=== PATIENT | male | born 1985 | race Caucasian/White ===

== ENCOUNTER 2017-06-28 11:29 | Observation (INO) | payer OTHER ==
[~2017-06-28] VITALS: Ht 165.1 cm; Wt 68.0 kg
[2017-06-28] MEDS ORDERED: LORazepam 2 MG/ML VIAL ONE (11:52)
[2017-06-28] MEDS ORDERED: MIDAZOLAM HCL 5 MG/ML VIAL (1 ML) ONE (11:55)
[2017-06-28 11:56] VITALS: BP 180/99; PULSE 124; RESP 18; TEMP 99.1; O2SAT 98
[2017-06-28] MEDS ORDERED: LORazepam 2 MG/ML VIAL IM ONE (12:00)
[2017-06-28] MEDS ORDERED: LIDOCAINE HCL 1% 30 ML VIAL INFIL ONE (12:00)
[2017-06-28] MEDS ORDERED: MIDAZOLAM HCL 2 MG/2 ML VIAL IM ONE (12:00)
[2017-06-28] MEDS ORDERED: SODIUM CHLOR 0.9% 1000 ML INJ 1,000 ML IV ONE ×3 (12:00→14:00)
[2017-06-28 12:09] VITALS: BP 180/99; PULSE 116; RESP 18; O2SAT 92
[2017-06-28 12:10] LABS: AUTOMATED NEUTROPHIL # 5.4 TH/MM3 (1.8-7.7); BASOPHIL # 0.1 TH/MM3 (0-0.2); BASOPHIL % 1.1 % (0.0-2.0); EOSINOPHIL % 0.3 % (0.0-4.0); HEMATOCRIT 47.7 % (39.0-51.0); HEMOGLOBIN 16.4 GM/DL (13.0-17.0); LYMPH % 24.4 % (9.0-44.0); LYMPHOCYTE # 1.9 TH/MM3 (1.0-4.8); MEAN CELL VOLUME 91.7 FL (80.0-100.0); MEAN CORPUSCULAR HEMOGLOBIN 31.6 PG (27.0-34.0); MEAN CORPUSCULAR HGB CONC 34.5 % (32.0-36.0); MEAN PLATELET VOLUME 7.9 FL (7.0-11.0); MONO % 7.1 % (0.0-8.0); MONOCYTE # 0.6 TH/MM3 (0-0.9); NEUT % 67.1 % (16.0-70.0); PLATELET COUNT 316 TH/MM3 (150-450); RED CELL DISTRIBUTION WIDTH 12.7 % (11.6-17.2)
--- NOTE | 2017-06-28 12:33 | PD ---
HPI Chief Complaint: Psychiatric Symptoms Time Seen by Provider: 11:50 Travel History International Travel<30 days: No Contact w/Intl Traveler<30days: No Traveled to known affect area: No History of Present Illness HPI Rd Carson that presents to the ED under BA for evaluation of PCP ingestion. Patient at this time is not a good historian at all and is clearly under the influence of illicit drugs. Per report from police who got involved, allegedly patient took an unknown amount of PCP, was acting erratic and hallucinating stating that he was "God" and became very agressive. EVAC contacted and he had to be restrained and given ketamine with good improvement of symptoms. Patient is currently restrained. Per police he hit his head and left knee on the police car x 3 times. No other injuries reported. patient cannot give any history at this time. Patient's real name is Kai Fay and birthday is 1985. Patient was BA by police. PFSH Past Medical History ?: Not Social History Alcohol Use: No Tobacco Use: No Substance Use: Yes Allergies-Medications (Allergen,Severity, Reaction): Coded Allergies: No Allergy Information Available (Unverified , 06/28/17) Reported Meds & Prescriptions Reported Meds & Active Scripts Active Active Prescriptions or Reported Medications Unobtainable Review of Systems ROS Limitations: Intoxication, Altered Mental Status, Combative, Poor Historian Except as stated in HPI: all other systems reviewed are Neg Physical Exam Exam Limitations: Intoxication, Altered Mental Status, Poor Historian, Combative Narrative GENERAL: SKIN: Warm and dry. Has a superficial laceration to anterior left knee. about 4 cm, less than 0.5 cm deep. Well approximated. No FB, tendon, vessel or nerve damage noted. HEAD: Atraumatic. Normocephalic. EYES: Pupils equal and round. No scleral icterus. No injection or drainage. ENT: No nasal bleeding or discharge. Mucous membranes pink and moist. Tongue is midline. No uvula deviation. NECK: Trachea midline. No JVD. CARDIOVASCULAR: Regular rate and rhythm. No murmurs, S3, S4. RESPIRATORY: No accessory muscle use. Clear to auscultation. Breath sounds equal bilaterally. GASTROINTESTINAL: Abdomen soft, non-tender, nondistended. Hepatic and splenic margins not palpable. MUSCULOSKELETAL: Extremities without clubbing, cyanosis, or edema. No obvious deformities. Full range of motion of the upper and lower extremities bilaterally. 2+ pulses bilaterally. NEUROLOGICAL: Awake and alert. No obvious cranial nerve deficits. Motor grossly within normal limits. Five out of 5 muscle strength in the arms and legs. Normal speech. PSYCHIATRIC: Appropriate mood and affect; insight and judgment normal. Data Data Last Documented VS Vital Signs Date Time Temp Pulse Resp B/P (MAP) Pulse Ox O2 Delivery O2 Flow Rate FiO2 06/28/17 12:09 116 18 180/99 (126) 92 Room Air 06/28/17 11:56 99.1 Orders Orders Complete Blood Count With Diff (06/28/17 11:50) Comprehensive Metabolic Panel (06/28/17 11:50) Ckmb (Isoenzyme) Profile (06/28/17 11:50) Troponin I (06/28/17 11:50) Magnesium (Mg) (06/28/17 11:50) Thyroid Stimulating Hormone (06/28/17 11:50) Ct Brain W/O Iv Contrast(Rout) (06/28/17 11:50) Iv Access Insert/Monitor (06/28/17 11:50) Ecg Monitoring (06/28/17 11:50) Oximetry (06/28/17 11:50) Psych Screen (06/28/17 11:50) Drug Screen, Random Urine (06/28/17 11:50) Alcohol (Ethanol) (06/28/17 11:50) Salicylates (Aspirin) (06/28/17 11:50) Tylenol (Acetaminophen) (06/28/17 11:50) Knee, Ltd (1 Or 2vws) (06/28/17 ) Lidocaine 1% Inj (Xylocaine 1% Inj) (06/28/17 12:00) Lorazepam Inj (Ativan Inj) (06/28/17 12:00) Lorazepam Inj (Ativan Inj) (06/28/17 11:52) Midazolam Inj (Versed Inj) (06/28/17 12:00) Midazolam Inj (Versed Inj) (06/28/17 11:55) Lactic Acid Sepsis Protocol (06/28/17 11:55) Sodium Chlor 0.9% 1000 Ml Inj (Ns 1000 M (06/28/17 12:00) Sodium Chlor 0.9% 1000 Ml Inj (Ns 1000 M (06/28/17 12:30) CKMB (06/28/17 12:00) CKMB% (06/28/17 12:00) Sodium Chlor 0.9% 1000 Ml Inj (Ns 1000 M (06/28/17 14:00) Electrocardiogram (06/28/17 ) Lorazepam Inj (Ativan Inj) (06/28/17 14:30) Chest, Single Ap (06/28/17 ) Tetanus/Diphtheria Tox Adult (Tetanus/Di (06/28/17 14:30) Lactic Acid (06/28/17 14:53) Admit Order (Ed Use Only) (06/28/17 15:01) Labs Laboratory Tests Test 06/28/17 12:00 06/28/17 12:05 06/28/17 12:20 White Blood Count 8.0 TH/MM3 Red Blood Count 5.20 MIL/MM3 Hemoglobin 16.4 GM/DL Hematocrit 47.7 % Mean Corpuscular Volume 91.7 FL Mean Corpuscular Hemoglobin 31.6 PG Mean Corpuscular Hemoglobin Concent 34.5 % Red Cell Distribution Width 12.7 % Platelet Count 316 TH/MM3 Mean Platelet Volume 7.9 FL Neutrophils (%) (Auto) 67.1 % Lymphocytes (%) (Auto) 24.4 % Monocytes (%) (Auto) 7.1 % Eosinophils (%) (Auto) 0.3 % Basophils (%) (Auto) 1.1 % Neutrophils # (Auto) 5.4 TH/MM3 Lymphocytes # (Auto) 1.9 TH/MM3 Monocytes # (Auto) 0.6 TH/MM3 Eosinophils # (Auto) 0.0 TH/MM3 Basophils # (Auto) 0.1 TH/MM3 CBC Comment DIFF FINAL Differential Comment Blood Urea Nitrogen 17 MG/DL Creatinine 1.71 MG/DL Random Glucose 178 MG/DL Total Protein 8.8 GM/DL Albumin 5.0 GM/DL Calcium Level 9.9 MG/DL Magnesium Level 2.6 MG/DL Alkaline Phosphatase 69 U/L Aspartate Amino Transf (AST/SGOT) 27 U/L Alanine Aminotransferase (ALT/SGPT) 26 U/L Total Bilirubin 1.2 MG/DL Sodium Level 138 MEQ/L Potassium Level 4.1 MEQ/L Chloride Level 101 MEQ/L Carbon Dioxide Level 19.0 MEQ/L Anion Gap 18 MEQ/L Estimat Glomerular Filtration Rate 35 ML/MIN Total Creatine Kinase 283 U/L Creatine Kinase MB 2.8 NG/ML Troponin I LESS THAN 0.02 NG/ML Thyroid Stimulating Hormone 3rd Gen 0.703 uIU/ML Salicylates Level 3.8 MG/DL Acetaminophen Level LESS THAN 2.0 MCG/ML Ethyl Alcohol Level LESS THAN 3 MG/DL Urine Opiates Screen NEG Urine Barbiturates Screen NEG Urine Amphetamines Screen NEG Urine Benzodiazepines Screen NEG Urine Cocaine Screen NEG Urine Cannabinoids Screen POS Lactic Acid Level 10.6 mmol/L MDM Medical Decision Making Medical Screen Exam Complete: Yes Emergency Medical Condition: Yes Medical Record Reviewed: Yes Interpretation(s) CBC & BMP Diagram 06/28/17 12:00 Total Protein 8.8 H, Albumin 5.0, Calcium Level 9.9, Magnesium Level 2.6 H, Alkaline Phosphatase 69, Aspartate Amino Transf (AST/SGOT) 27, Alanine Aminotransferase (ALT/SGPT) 26, Total Bilirubin 1.2 H lactic acid is 10 troponin and CKMB WNL Last Impressions Head CT 06/28/17 1150 Signed Impressions: Service Date/Time: Wednesday, June 28, 2017 12:38 - CONCLUSION: 1. No acute intracranial abnormalities. Evans Pepper MD Knee X-Ray 06/28/17 0000 Signed Impressions: Service Date/Time: Wednesday, June 28, 2017 12:07 - CONCLUSION: 1. No acute bony abnormalities. Soft tissue lacerations present. Evans Pepper MD Differential Diagnosis intoxication vs PCP use vs overdose vs psychosis vs mood disorder vs rhabdomyolisis vs dehydration Narrative Course Ron Carson that presents to the ED for evaluation of BA and acute intoxication Properly examined. Cannot get any history. patient in restraints for safety of staff and himself. Given ativan and versed here in the ED with improvement of sedation. Fluid given. Labs and imaging ordered. My attending Dr Chatman evaluated him and agrees with plan. Labs and imaging scan back showing slightly elevated lactic acid. Likely secondary from substance abuse. Patient still in restraints and has to be sedated and cannot really give us any information. After explained procedure to the patient laceration was repaired as stated in procedure note. Patient will be admitted to medical team secondary to inability to get patient medically clear secondary to substance abuse. NETTIE was paged and Dr Sotelo agrees to admission Procedures Procedure Narrative LACERATION LOCATION: left knee LENGTH: 3 cm NUMBER OF STITCHES/MELINDA: 5 melinda REPAIR: The area of the laceration was prepped with Betadine and sterilely draped. The laceration was infiltrated with 1% Xylocaine. The wound was copiously irrigated and explored without evidence of foreign body, tendon injury or neurovascular injury. The wound was closed using sterile stapler. This was a 1 layer repair. A sterile dressing was applied. The patient was advised to keep the dressing clean and dry. Patient tolerated the procedure well. Diagnosis Primary Impression: Altered mental status Qualified Codes: R41.82 - Altered mental status, unspecified Additional Impressions: Lactic acid acidosis Substance abuse Admitting Information Admitting Physician Requests: Admit Scripts Unable to Obtain Active Prescriptions or Reported Meds Jalen Monroe Jun 28, 2017 12:33
[2017-06-28 12:41] LABS: ALKALINE PHOSPHATASE 69 U/L (45-117); TOTAL BILIRUBIN ADULT 1.2 MG/DL (0.2-1.0); TOTAL PROTEIN 8.8 GM/DL (6.4-8.2); TROPONIN I LESS THAN 0.02 NG/ML (0.02-0.05)
--- NOTE | 2017-06-28 12:48 | RADRPT ---
EXAM DATE/TIME: 06/28/2017 12:07 [facility] COMPARISON: No previous studies available for comparison. INDICATIONS : Left knee lacerations, pt jumped out of a police car window MEDICAL HISTORY : none known SURGICAL HISTORY : none known ENCOUNTER: Initial ACUITY: 1 day PAIN SCORE: Non-responsive. LOCATION: Left knee FINDINGS: Two view examination of the left knee demonstrates no evidence of fracture or dislocation. Bony mine ralization is normal. CONCLUSION: 1. No acute bony abnormalities. Soft tissue lacerations present. Evans Pepper MD on June 28, 2017 at 12:45 Board Certified Radiologist. This report was verified electronically.
--- NOTE | 2017-06-28 12:53 | RADRPT ---
EXAM DATE/TIME: 06/28/2017 12:38 [facility] COMPARISON: No previous studies available for comparison. INDICATIONS : Altered mental status RADIATION DOSE: 35.37 CTDIvol (mGy) MEDICAL HISTORY : Non-responsive. SURGICAL HISTORY : Non-responsive. ENCOUNTER: Initial ACUITY: 1 day PAIN SCALE: Non-responsive LOCATION: cranial TECHNIQUE: Multiple contiguous axial images were obtained of the head. Using automated exposure control and adj ustment of the mA and/or kV according to patient size, radiation dose was kept as low as reasonably a chievable to obtain optimal diagnostic quality images. DICOM format image data is available electro nically for review and comparison. FINDINGS: CEREBRUM: The ventricles are normal for age. No evidence of midline shift, mass lesion, hemorrhage or acute in farction. No extra-axial fluid collections are seen. POSTERIOR FOSSA: The cerebellum and brainstem are intact. The 4th ventricle is midline. The cerebellopontine angle i s unremarkable. EXTRACRANIAL: The visualized portion of the orbits is intact. SKULL: The calvaria is intact. No evidence of skull fracture. CONCLUSION: 1. No acute intracranial abnormalities. Evans Pepper MD on June 28, 2017 at 12:47 Board Certified Radiologist. This report was verified electronically.
[2017-06-28 13:40] LABS: ALT (GPT) 26 U/L (12-78); AST (GOT) 27 U/L (15-37); BLOOD UREA NITROGEN 17 MG/DL (7-18); CALCIUM 9.9 MG/DL (8.5-10.1); CHLORIDE 101 MEQ/L (98-107); CREATININE 1.71 MG/DL (0.60-1.30); GLOMERULAR FILTRATION RATE 35 ML/MIN (>89); GLUCOSE,RANDOM 178 MG/DL (74-106); MAGNESIUM 2.6 MG/DL (1.5-2.5); SODIUM (NA) 138 MEQ/L (136-145)
[2017-06-28 13:47] LABS: LACTIC ACID SEPSIS PROTOCOL 10.6 mmol/L (0.4-2.0)
[2017-06-28 13:48] LABS: ACETAMINOPHEN LESS THAN 2.0 MCG/ML (10.0-30.0)
[2017-06-28] MEDS ORDERED: LORazepam 2 MG/ML VIAL IV PUSH ONE (14:30)
[2017-06-28] MEDS ORDERED: TETANUS/DIPHTHERIA TOXOID ADULT 0.5 ML VIAL IM ONE (14:30)
[2017-06-28] MEDS ORDERED: SODIUM CHLORIDE 0.9% FLUSH 10 ML FLUSH IV FLUSH PRN (15:15)
[2017-06-28] MEDS ORDERED: ACETAMINOPHEN 325 MG TAB PO PRN ×2 (15:15)
[2017-06-28] MEDS ORDERED: NALOXONE HCL 0.4 MG/ML AMP IV PUSH PRN (15:15)
[2017-06-28] MEDS ORDERED: ONDANSETRON HCL 4 MG/2 ML VIAL IVP PRN (15:15)
[2017-06-28 15:48] VITALS: BP 127/68; PULSE 84; RESP 16; O2SAT 100
--- NOTE | 2017-06-28 16:18 | RADRPT ---
EXAM DATE/TIME: 06/28/2017 15:58 [facility] COMPARISON: No previous studies available for comparison. INDICATIONS : Patient jumped out of police car window per nurse MEDICAL HISTORY : none known SURGICAL HISTORY : none known ENCOUNTER: Initial ACUITY: 1 day PAIN SCORE: Non-responsive. LOCATION: Bilateral chest FINDINGS: A single view of the chest demonstrates the lungs to be symmetrically aerated without evidence of mas s, infiltrate or effusion. The cardiomediastinal contours are unremarkable. Mild curvature of the t horacic spine convex towards the right.. CONCLUSION: The lungs are clear. No evidence of pneumothorax. Afshin Garcia MD on June 28, 2017 at 16:15 Board Certified Radiologist. This report was verified electronically.
--- NOTE | 2017-06-28 16:23 | HHI.HP ---
[facility] Primary Care Physician Unknown Admission Diagnosis AMS, PCP abuse, lactic acidosis Diagnoses: (1) Toxic encephalopathy (2) Altered mental status (3) Blood glucose elevated (4) Acute renal failure (5) Lactic acid acidosis (6) Substance abuse Chief Complaint: Altered mental status change Travel History International Travel<30 Days: No Contact w/Intl Traveler <30 Da: No Traveled to Known Affected Are: No History of Present Illness Patient is unable to communicate at this time during my exam and history is obtained from ED report and chart review below "Rd Carson that presents to the ED under BA for evaluation of PCP ingestion. Patient at this time is not a good historian at all and is clearly under the influence of illicit drugs. Per report from police who got involved, allegedly patient took an unknown amount of PCP, was acting erratic and hallucinating stating that he was "God" and became very agressive. EVAC contacted and he had to be restrained and given ketamine with good improvement of symptoms. Patient is currently restrained. Per police he hit his head and left knee on the police car x 3 times. No other injuries reported. patient cannot give any history at this time. Patient's real name is Kai Fay and birthday is 1985. Patient was BA by police." Review of Systems ROS Limitations: Altered Mental Status Past Family Social History Past Medical History Unable to obtain Past Surgical History Unable to obtain Reported Medications Unable to obtain Allergies: Coded Allergies: No Allergy Information Available (Unverified , 06/28/17) Family History Unable to obtain Social History Unable to obtain Physical Exam Vital Signs Vital Signs Date Time Temp Pulse Resp B/P (MAP) Pulse Ox O2 Delivery O2 Flow Rate FiO2 06/28/17 15:48 84 16 127/68 (87) 100 Nasal Cannula 2.00 06/28/17 12:09 116 18 180/99 (126) 92 Room Air 06/28/17 11:56 99.1 124 18 180/99 (126) 98 Physical Exam GENERAL: lethargic and unresponsive with [address] SKIN: No rashes, ecchymoses or lesions. Cool and dry. HEAD: Atraumatic. Normocephalic. No temporal or scalp tenderness. EYES: pinpoint Pupils. No scleral icterus. No injection or drainage. ENT: Nose without bleeding, purulent drainage or septal hematoma. Throat without erythema, tonsillar hypertrophy or exudate. Uvula midline. Airway patent. NECK: Trachea midline. No JVD or lymphadenopathy. Supple, nontender, no meningeal signs. CARDIOVASCULAR: Regular rate and rhythm without murmurs, gallops, or rubs. RESPIRATORY: Clear to auscultation. Breath sounds decrease bilaterally. No wheezes, rales, or rhonchi. GASTROINTESTINAL: Abdomen soft, non-tender, nondistended. No hepato-splenomegaly , or palpable masses. No guarding. MUSCULOSKELETAL: Extremities without clubbing, cyanosis, or edema. No joint tenderness, effusion, or edema noted. No calf tenderness. NEUROLOGICAL: Lethargic. Motor and sensory grossly within normal limits. Laboratory Laboratory Tests Test 06/28/17 12:00 06/28/17 12:05 06/28/17 12:20 06/28/17 16:00 White Blood Count 8.0 Red Blood Count 5.20 Hemoglobin 16.4 Hematocrit 47.7 Mean Corpuscular Volume 91.7 Mean Corpuscular Hemoglobin 31.6 Mean Corpuscular Hemoglobin Concent 34.5 Red Cell Distribution Width 12.7 Platelet Count 316 Mean Platelet Volume 7.9 Neutrophils (%) (Auto) 67.1 Lymphocytes (%) (Auto) 24.4 Monocytes (%) (Auto) 7.1 Eosinophils (%) (Auto) 0.3 Basophils (%) (Auto) 1.1 Neutrophils # (Auto) 5.4 Lymphocytes # (Auto) 1.9 Monocytes # (Auto) 0.6 Eosinophils # (Auto) 0.0 Basophils # (Auto) 0.1 CBC Comment DIFF FINAL Differential Comment Blood Urea Nitrogen 17 Creatinine 1.71 Random Glucose 178 Total Protein 8.8 Albumin 5.0 Calcium Level 9.9 Magnesium Level 2.6 Alkaline Phosphatase 69 Aspartate Amino Transf (AST/SGOT) 27 Alanine Aminotransferase (ALT/SGPT) 26 Total Bilirubin 1.2 Sodium Level 138 Potassium Level 4.1 Chloride Level 101 Carbon Dioxide Level 19.0 Anion Gap 18 Estimat Glomerular Filtration Rate 35 Total Creatine Kinase 283 Creatine Kinase MB 2.8 Troponin I LESS THAN 0.02 Thyroid Stimulating Hormone 3rd Gen 0.703 Salicylates Level 3.8 Acetaminophen Level LESS THAN 2.0 Ethyl Alcohol Level LESS THAN 3 Urine Opiates Screen NEG Urine Barbiturates Screen NEG Urine Amphetamines Screen NEG Urine Benzodiazepines Screen NEG Urine Cocaine Screen NEG Urine Cannabinoids Screen POS Lactic Acid Level 10.6 Result Diagram: 06/28/17 1200 06/28/17 1200 Imaging Last Impressions Head CT 06/28/17 1150 Signed Impressions: Service Date/Time: Wednesday, June 28, 2017 12:38 - CONCLUSION: 1. No acute intracranial abnormalities. Evans Pepper MD Knee X-Ray 06/28/17 0000 Signed Impressions: Service Date/Time: Wednesday, June 28, 2017 12:07 - CONCLUSION: 1. No acute bony abnormalities. Soft tissue lacerations present. Evans Pepper MD Septic Shock Reassessment Septic shock perfusion: reassessment completed Caprini VTE Risk Assessment Caprini VTE Risk Assessment: No/Low Risk (score <= 1) Caprini Risk Assessment Model Point Value = 1 Point Value = 2 Point Value = 3 Point Value = 5 Age 41-60 Minor surgery BMI > 25 kg/m2 Swollen legs Varicose veins or History of unexplained or recurrent spontaneous Oral contraceptives or hormone replacement Sepsis (< 1 month) Serious lung disease, including pneumonia (< 1 month) Abnormal pulmonary function Acute myocardial infarction Congestive heart failure (< 1 month) History of inflammatory bowel disease Medical patient at bed rest Age 61-74 Arthroscopic surgery Major open surgery (> 45 min) Laparoscopic surgery (> 45 min) Malignancy Confined to bed (> 72 hours) Immobilizing plaster cast Central venous access Age >= 75 History of VTE Family history of VTE Factor V Leiden Prothrombin [id number] Lupus anticoagulant Anticardiolipin antibodies Elevated serum homocysteine Heparin-induced thrombocytopenia Other congenital or acquired thrombophilia Stroke (< 1 month) Elective arthroplasty Hip, pelvis, or leg fracture Acute spinal cord injury (< 1 month) Prophylaxis Regimen Total Risk Factor Score Risk Level Prophylaxis Regimen 0-1 Low Early ambulation 2 Moderate Order ONE of the following: *Sequential Compression Device (SCD) *Heparin 5000 units SQ BID 3-4 Higher Order ONE of the following medications: *Heparin 5000 units SQ TID *Enoxaparin/Lovenox 40 mg SQ daily (WT < 150 kg, CrCl > 30 mL/min) *Enoxaparin/Lovenox 30 mg SQ daily (WT < 150 kg, CrCl > 10-29 mL/min) *Enoxaparin/Lovenox 30 mg SQ BID (WT < 150 kg, CrCl > 30 mL/min) AND/OR *Sequential Compression Device (SCD) 5 or more Highest Order ONE of the following medications: *Heparin 5000 units SQ TID (Preferred with Epidurals) *Enoxaparin/Lovenox 40 mg SQ daily (WT < 150 kg, CrCl > 30 mL/min) *Enoxaparin/Lovenox 30 mg SQ daily (WT < 150 kg, CrCl > 10-29 mL/min) *Enoxaparin/Lovenox 30 mg SQ BID (WT < 150 kg, CrCl > 30 mL/min) AND *Sequential Compression Device (SCD) Assessment and Plan Problem List: (1) Toxic encephalopathy ICD Code: G92 - Toxic encephalopathy (2) Lactic acid acidosis ICD Code: E87.2 - Acidosis Status: Acute (3) Altered mental status ICD Code: R41.82 - Altered mental status, unspecified Status: Acute (4) Acute renal failure ICD Code: N17.9 - Acute kidney failure, unspecified (5) Blood glucose elevated ICD Code: R73.9 - Hyperglycemia, unspecified Assessment and Plan Toxic encephalopathy Altered mental status change 2/[address] noted and review by me without any intracranial abnormality UDS positive for cocaine Continue medical management, neuro check and cardiac monitoring Lactic acidosis 2/2 dehydration vs PCP vs others Continue with IVF hydration Monitor CK Acute renal failure IVF hydration Monitor Bun/Cr Elevated BG level Check HgA1C Polysubstance abuse Continue with [facility] consultation DVT prophylaxis: B-SCD Code Status Full code Discussed Condition With ED PA Problem Qualifiers (1) Altered mental status: Qualified Codes: R41.82 - Altered mental status, unspecified [place] Sotelo MD Jun 28, 2017 16:23
[2017-06-28] MEDS: SODIUM CHLOR 0.9% 1000 ML INJ 1,000 ML IV SCH ×2 (16:33→20:12)
[2017-06-28] MEDS ORDERED: LORazepam 1 MG TAB PO PRN (16:45)
[2017-06-28] MEDS ORDERED: LORazepam 2 MG/ML VIAL IV PUSH PRN ×3 (16:45)
[2017-06-28] MEDS ORDERED: FLUMAZENIL 0.5 MG/5 ML VIAL IV PUSH PRN (16:45)
[2017-06-28] MEDS ORDERED: LORazepam 2 MG TAB PO PRN (16:45)
[2017-06-28 17:35] VITALS: BP 148/84
--- NOTE | 2017-06-28 17:38 | PD ---
Physical Exam Narrative I, Dr. Chatman, have reviewed the advance practice practitioner's documentation and am in agreement, met with the patient face to face, made the diagnosis, and the medical decision making was done by me. *My assessment and Findings: Patient is a 31 year old male brought in under a mora act by police, after taking PCP. Patient is agitated and combative. He has a wound to his knee and head. He is unable to provide any history. Police report he took 20 PCP. Data Data Last Documented VS Vital Signs Date Time Temp Pulse Resp B/P (MAP) Pulse Ox O2 Delivery O2 Flow Rate FiO2 06/28/17 12:09 116 18 180/99 (126) 92 Room Air 06/28/17 11:56 99.1 Orders Orders Complete Blood Count With Diff (06/28/17 11:50) Comprehensive Metabolic Panel (06/28/17 11:50) Ckmb (Isoenzyme) Profile (06/28/17 11:50) Troponin I (06/28/17 11:50) Magnesium (Mg) (06/28/17 11:50) Thyroid Stimulating Hormone (06/28/17 11:50) Ct Brain W/O Iv Contrast(Rout) (06/28/17 11:50) Iv Access Insert/Monitor (06/28/17 11:50) Ecg Monitoring (06/28/17 11:50) Oximetry (06/28/17 11:50) Psych Screen (06/28/17 11:50) Drug Screen, Random Urine (06/28/17 11:50) Alcohol (Ethanol) (06/28/17 11:50) Salicylates (Aspirin) (06/28/17 11:50) Tylenol (Acetaminophen) (06/28/17 11:50) Knee, Ltd (1 Or 2vws) (06/28/17 ) Lidocaine 1% Inj (Xylocaine 1% Inj) (06/28/17 12:00) Lorazepam Inj (Ativan Inj) (06/28/17 12:00) Lorazepam Inj (Ativan Inj) (06/28/17 11:52) Midazolam Inj (Versed Inj) (06/28/17 12:00) Midazolam Inj (Versed Inj) (06/28/17 11:55) Lactic Acid Sepsis Protocol (06/28/17 11:55) Sodium Chlor 0.9% 1000 Ml Inj (Ns 1000 M (06/28/17 12:00) Sodium Chlor 0.9% 1000 Ml Inj (Ns 1000 M (06/28/17 12:30) CKMB (06/28/17 12:00) CKMB% (06/28/17 12:00) Sodium Chlor 0.9% 1000 Ml Inj (Ns 1000 M (06/28/17 14:00) Electrocardiogram (06/28/17 ) Lorazepam Inj (Ativan Inj) (06/28/17 14:30) Chest, Single Ap (06/28/17 ) Tetanus/Diphtheria Tox Adult (Tetanus/Di (06/28/17 14:30) Lactic Acid (06/28/17 14:53) Admit Order (Ed Use Only) (06/28/17 15:01) Labs Laboratory Tests Test 06/28/17 12:00 06/28/17 12:05 06/28/17 12:20 White Blood Count 8.0 TH/MM3 Red Blood Count 5.20 MIL/MM3 Hemoglobin 16.4 GM/DL Hematocrit 47.7 % Mean Corpuscular Volume 91.7 FL Mean Corpuscular Hemoglobin 31.6 PG Mean Corpuscular Hemoglobin Concent 34.5 % Red Cell Distribution Width 12.7 % Platelet Count 316 TH/MM3 Mean Platelet Volume 7.9 FL Neutrophils (%) (Auto) 67.1 % Lymphocytes (%) (Auto) 24.4 % Monocytes (%) (Auto) 7.1 % Eosinophils (%) (Auto) 0.3 % Basophils (%) (Auto) 1.1 % Neutrophils # (Auto) 5.4 TH/MM3 Lymphocytes # (Auto) 1.9 TH/MM3 Monocytes # (Auto) 0.6 TH/MM3 Eosinophils # (Auto) 0.0 TH/MM3 Basophils # (Auto) 0.1 TH/MM3 CBC Comment DIFF FINAL Differential Comment Blood Urea Nitrogen 17 MG/DL Creatinine 1.71 MG/DL Random Glucose 178 MG/DL Total Protein 8.8 GM/DL Albumin 5.0 GM/DL Calcium Level 9.9 MG/DL Magnesium Level 2.6 MG/DL Alkaline Phosphatase 69 U/L Aspartate Amino Transf (AST/SGOT) 27 U/L Alanine Aminotransferase (ALT/SGPT) 26 U/L Total Bilirubin 1.2 MG/DL Sodium Level 138 MEQ/L Potassium Level 4.1 MEQ/L Chloride Level 101 MEQ/L Carbon Dioxide Level 19.0 MEQ/L Anion Gap 18 MEQ/L Estimat Glomerular Filtration Rate 35 ML/MIN Total Creatine Kinase 283 U/L Creatine Kinase MB 2.8 NG/ML Troponin I LESS THAN 0.02 NG/ML Thyroid Stimulating Hormone 3rd Gen 0.703 uIU/ML Salicylates Level 3.8 MG/DL Acetaminophen Level LESS THAN 2.0 MCG/ML Ethyl Alcohol Level LESS THAN 3 MG/DL Urine Opiates Screen NEG Urine Barbiturates Screen NEG Urine Amphetamines Screen NEG Urine Benzodiazepines Screen NEG Urine Cocaine Screen NEG Urine Cannabinoids Screen POS Lactic Acid Level 10.6 mmol/L MDM Supervised Visit with BENNY: Yes Narrative Course Patient required a lot of sedation. He was given Ketamine by EMS. He became agitated and was given multiple doses of benzodiazepines here. CT head performed shows no acute abnormalities. Labs showed an elevated lactic acid, but this improved quickly with fluids. Is likely from drug use/agitation and not infection. He will be admitted for further management. Diagnosis Primary Impression: Altered mental status Qualified Codes: R41.82 - Altered mental status, unspecified Additional Impressions: Substance abuse Lactic acid acidosis Scripts Unable to Obtain Active Prescriptions or Reported Meds Rosio Chatman MD Jun 28, 2017 17:38
[2017-06-28 19:00] VITALS: BP 123/73; PULSE 90; RESP 16; TEMP 97.2; O2SAT 100
[2017-06-28] MEDS: SODIUM CHLORIDE 0.9% FLUSH 10 ML FLUSH IV FLUSH SCH (20:12)
[2017-06-28] MEDS: LORazepam 2 MG/ML VIAL IV PUSH PRN (21:38)
[2017-06-29 01:35] VITALS: BP 144/59; PULSE 114; RESP 17; O2SAT 99
[2017-06-29] MEDS: LORazepam 2 MG/ML VIAL IV PUSH PRN ×2 (01:40→05:22)
[2017-06-29] MEDS: SODIUM CHLOR 0.9% 1000 ML INJ 1,000 ML IV SCH (05:23)
[2017-06-29 06:18] LABS: ALBUMIN 3.9 GM/DL (3.4-5.0); ALKALINE PHOSPHATASE 53 U/L (45-117); ALT (GPT) 27 U/L (12-78); AST (GOT) 68 U/L (15-37); BICARBONATE 23.6 MEQ/L (21.0-32.0); BLOOD UREA NITROGEN 10 MG/DL (7-18); CALCIUM 8.4 MG/DL (8.5-10.1); CHLORIDE 109 MEQ/L (98-107); GLOMERULAR FILTRATION RATE 114 ML/MIN (>89); GLUCOSE,RANDOM 71 MG/DL (74-106); SODIUM (NA) 142 MEQ/L (136-145); TOTAL BILIRUBIN ADULT 1.1 MG/DL (0.2-1.0); TOTAL PROTEIN 6.7 GM/DL (6.4-8.2)
[2017-06-29 06:33] VITALS: BP 148/89; PULSE 90; RESP 17; TEMP 97.4; O2SAT 98
[2017-06-29] MEDS ORDERED: LORazepam 0.5 MG TAB PO PRN (07:45)
[2017-06-29 08:00] VITALS: BP 140/81; PULSE 93; RESP 18; TEMP 97; O2SAT 94
--- NOTE | 2017-06-29 08:05 | EKG ---
Date Performed: 06/28/2017 Time Performed: 12:26:55 PTAGE: 89 years EKG: SINUS TACHYCARDIA WITH SHORT WY INTERVAL ABNORMAL RHYTHM ECG NO PREVIOUS TRACING DOCTOR: Regina Davis Interpretating Date/Time 06/29/2017 08:02:09
[2017-06-29] MEDS: SODIUM CHLORIDE 0.9% FLUSH 10 ML FLUSH IV FLUSH SCH (09:00)
[2017-06-29 11:40] VITALS: BP 118/72; PULSE 115; RESP 18; TEMP 98.1; O2SAT 96
--- NOTE | 2017-06-29 12:38 | HHI.PR ---
Subjective Remarks Follow-up toxic encephalopathy 06/29/17-patient seen and examined, alert and oriented x 3; states he is not suicidal or homicidal.States he wanted to know how he got here in the hospital. Patient demanded that his be brought to the hospital. Case discussed with Psychiatry Objective Vitals Vital Signs Date Time Temp Pulse Resp B/P (MAP) Pulse Ox O2 Delivery O2 Flow Rate FiO2 06/29/17 11:40 98.1 115 18 118/72 (87) 96 06/29/17 08:00 97.0 93 18 140/81 (100) 94 06/29/17 06:33 97.4 90 17 148/89 (108) 98 06/29/17 01:35 114 17 144/59 (87) 99 06/28/17 19:00 97.2 90 16 123/73 (90) 100 06/28/17 17:35 86 20 148/84 (105) 98 2.00 06/28/17 15:48 84 16 127/68 (87) 100 Nasal Cannula 2.00 I/O 06/28/17 06/28/17 06/28/17 06/29/17 06/29/17 06/29/17 07:00 15:00 23:00 07:00 15:00 23:00 Intake Total 3360 ml 1260 ml Output Total 500 ml 500 ml Balance 2860 ml 760 ml Intake Oral 360 ml 360 ml IV Total 3000 ml 900 ml Output Urine Total 500 ml 500 ml # Bowel Movements 0 0 Result Diagram: 06/28/17 1200 06/29/17 0531 Imaging Last Impressions Head CT 06/28/17 1150 Signed Impressions: Service Date/Time: Wednesday, June 28, 2017 12:38 - CONCLUSION: 1. No acute intracranial abnormalities. Evans Pepper MD Knee X-Ray 06/28/17 0000 Signed Impressions: Service Date/Time: Wednesday, June 28, 2017 12:07 - CONCLUSION: 1. No acute bony abnormalities. Soft tissue lacerations present. Evans Pepper MD Chest X-Ray 06/28/17 0000 Signed Impressions: Service Date/Time: Wednesday, June 28, 2017 15:58 - CONCLUSION: The lungs are clear. No evidence of pneumothorax. Afshin Garcia MD Objective Remarks GENERAL: NAD with 4pts restrains in place SKIN: Warm and dry. HEAD: Normocephalic. EYES: No scleral icterus. No injection or drainage. NECK: Supple, trachea midline. No JVD or lymphadenopathy. CARDIOVASCULAR: Regular rate and rhythm without murmurs, gallops, or rubs. RESPIRATORY: Breath sounds equal bilaterally. No accessory muscle use. GASTROINTESTINAL: Abdomen soft, non-tender, nondistended. MUSCULOSKELETAL: No cyanosis, or edema. BACK: Nontender without obvious deformity. No CVA tenderness. Procedures none A/P Problem List: (1) Toxic encephalopathy ICD Code: G92 - Toxic encephalopathy Status: Resolved (2) Lactic acid acidosis ICD Code: E87.2 - Acidosis Status: Resolved (3) Altered mental status ICD Code: R41.82 - Altered mental status, unspecified Status: Resolved (4) Acute renal failure ICD Code: N17.9 - Acute kidney failure, unspecified Status: Resolved (5) Blood glucose elevated ICD Code: R73.9 - Hyperglycemia, unspecified Status: Resolved Assessment and Plan 31 years old man Toxic encephalopathy-Resolved Altered mental status change-Resolved 2/[address] noted and review by me without any intracranial abnormality UDS positive for Cannabinoid Lactic acidosis-Resolved 2/2 dehydration vs PCP vs others Continue with IVF hydration Acute renal failure Resolved with IVF hydration Monitor Bun/Cr Elevated BG level HgA1C pending Polysubstance abuse Continue with [facility] Psychiatry consultation appreciated,Case was discussed this a.m. with Dr. Diaz DVT prophylaxis: B-SCD Patient is medically stable and cleared for discharge pending further recommendation from psychiatry Discharge Planning Discharge patient to inpatient psychiatry Condition on discharge: Improved Regular Diet as tolerated Ad Leah activity Rx written:none Follow-up with primary care physician Problem Qualifiers (1) Altered mental status: Qualified Codes: R41.82 - Altered mental status, unspecified [place] MD Jun 29, 2017 12:38
[2017-06-29] MEDS ORDERED: HALOPERIDOL 5 MG TAB PO SCH (14:15)
[2017-06-29] MEDS ORDERED: HALOPERIDOL LACTATE 5 MG/ML AMP IM PRN (14:15)
--- NOTE | 2017-06-29 14:18 | PD.PSY.CON ---
Provisional Diagnosis Admission Date Jun 28, 2017 at 15:03 [place] I. Unspecified psychosis, r/o substance-induced psychosis, r/o medical induce psychosis, r/o schizophrenia [place] II. Deferred [place] III. Not significant medical history Tur[place] IV. Under observation Turpin V. 35 History of Present Illness Service Psychiatry Consult Requested By Medical team Reason for Consult Psychosis Primary Care Physician Unknown HPI The patient is a 31 years old descended man, domiciled with his in [facility], employed, without any previous psychiatric history, no previous psychiatric hospitalizations, no previous suicidal attempts, just cannabis use disorder, medical medical history, was hospitalized under the name of Rd Alli and presents to the ED under [facility] for evaluation of PCP ingestion. Patient at this time is not a good historian at all and is clearly under the influence of illicit drugs. Per report from police who got involved, allegedly patient took an unknown amount of PCP, was acting erratic and hallucinating stating that he was "God" and became very agressive. [facility] contacted and he had to be restrained and given ketamine with good improvement of symptoms. Patient is currently restrained. Per police he hit his head and left knee on the police car x 3 times. Patient was admitted in the medical floor due to Altered mental status change, brain CT didn't show any acute findings. He was consulted to psychiatry due to psychotic behavior. Chart was reviewed. The patient was wildly discussed with nurse in charge, also with Dr. Lawson. On psychiatric evaluation today the patient is found accompanied bite severe. The patient is distant, poorly cooperative, at the beginning oppositional and irritable. The patient is extremely malodorous, with with flat affect and oddly related. When I asked to the patient the reason for his hospitalization he says "I I don't know". He asked me if he can call me by my first name, telling me that I can call him "Kai the great". With reassurance and redirection the patient was able to say that he doesn't really understand the reason he was brought here, he says that he has been feeling very depressed because people in the street has been "ignoring me". He says that he has been trying to love everybody, but nobody loved him. He says that people are looking at him suspiciously "but haven't done anything, I just want the love". During the evaluation the patient behaves very bizarrely, with prominent flat affect, blocking thought and delayed speech. At some point during the evaluation the patient also becomes very Labile and is start crying for no reason. He says that sometimes he feels like "I don't know why I am, I don't know where the people around me". He denies suicidal and homicidal ideation, he denies visual and auditory hallucinations. The patient denies previous psychiatric history, he denies the use of illegal drugs other than cannabis. As per nursing charge the patient has been reportedly very aggressive, agitated and disorganized. Review of Systems Constitutional: DENIES: Diaphoretic episodes, Fatigue, Fever, Weight gain, Weight loss, Chills, Dizziness, Change in appetite, Night Sweats Endocrine: DENIES: Heat/cold intolerance, Polydipsia, Polyuria, Polyphagia Eyes: DENIES: Blurred vision, Diplopia, Eye inflammation, Eye pain, Vision loss , Photosensitivity, Double Vision Ears, nose, mouth, throat: DENIES: Tinnitus, Hearing loss, Vertigo, Nasal discharge, Oral lesions, Throat pain, Hoarseness, Ear Pain, Running Nose, Epistaxis, Sinus Pain, Toothache, Odynophagia Respiratory: DENIES: Apneas, Cough, Snoring, Wheezing, Hemoptysis, Sputum production, Shortness of breath Cardiovascular: DENIES: Chest pain, Palpitations, Syncope, Dyspnea on Exertion , PND, Lower Extremity Edema, Orthopnea, Claudication Gastrointestinal: DENIES: Abdominal pain, Black stools, Bloody stools, Constipation, Diarrhea, Nausea, Vomiting, Difficulty Swallowing, Anorexia Genitourinary: DENIES: Sexual dysfunction, Urinary frequency, Urinary incontinence, Urgency, Hematuria, Dysuria, Nocturia, Penile Discharge, Testicular Pain, Testicular Swelling Musculoskeletal: DENIES: Joint pain, Muscle aches, Stiffness, Joint Swelling, Back pain, Neck pain Integumentary: DENIES: Abnormal pigmentation, Nail changes, Pruritus, Rash Hematologic/lymphatic: DENIES: Bruising, Lymphadenopathy Immunologic/allergic: DENIES: Eczema, Urticaria Neurologic: DENIES: Abnormal gait, Headache, Localized weakness, Paresthesias, Seizures, Speech Problems, Tremor, Poor Balance Psychiatric: COMPLAINS OF: Confusion, Mood changes, Agitation, Delusions Past Family Social History Coded Allergies: No Allergy Information Available (Unverified , 06/28/17) Unable to Obtain Active Prescriptions or Reported Meds Current Medications Medications (Trade) Dose Ordered Sig/Rhianna Route Start Time Stop Time Status Last Admin (NS Flush) 2 ml UNSCH PRN IV FLUSH 06/28/17 15:15 (NS Flush) 2 ml BID IV FLUSH 06/28/17 21:00 06/28/17 20:12 (Tylenol) 650 mg Q4H PRN PO 06/28/17 15:15 (Zofran Inj) 4 mg Q6H PRN IVP 06/28/17 15:15 (Tylenol) 650 mg Q6H PRN PO 06/28/17 15:15 (Narcan Inj) 0.4 mg UNSCH PRN IV PUSH 06/28/17 15:15 Sodium Chloride 1,000 ml @ 100 mls/hr Q10H IV 06/28/17 16:15 06/29/17 05:23 (Ativan) 0.5 mg Q12H PRN PO 06/29/17 07:45 Family Psych History He denies family psychiatric history Social History Patient was born in [place], he lives with his in [facility], 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 2) Verbal communication Physical Exam No psychomotor agitation retardation, no EPS, no stiffness, no tremors Vital Signs Vital Signs Date Time Temp Pulse Resp B/P (MAP) Pulse Ox O2 Delivery O2 Flow Rate FiO2 06/29/17 11:40 98.1 115 18 118/72 (87) 96 06/28/17 17:35 2.00 06/28/17 15:48 Nasal Cannula I/O 06/29/17 06/29/17 06/30/17 08:00 16:00 00:00 Intake Total 1260 ml Output Total 500 ml Balance 760 ml Lab Results Test 06/28/17 16:00 06/28/17 18:43 06/29/17 05:31 Lactic Acid Level 0.6 mmol/L 1.1 mmol/L Blood Urea Nitrogen 10 MG/DL Creatinine 0.80 MG/DL Random Glucose 71 MG/DL Total Protein 6.7 GM/DL Albumin 3.9 GM/DL Calcium Level 8.4 MG/DL Alkaline Phosphatase 53 U/L Aspartate Amino Transf (AST/SGOT) 68 U/L Alanine Aminotransferase (ALT/SGPT) 27 U/L Total Bilirubin 1.1 MG/DL Sodium Level 142 MEQ/L Potassium Level 3.8 MEQ/L Chloride Level 109 MEQ/L Carbon Dioxide Level 23.6 MEQ/L Anion Gap 9 MEQ/L Estimat Glomerular Filtration Rate 114 ML/MIN Mental Status Examination Appearance: Appropriate, Malodorous Consciousness: Alert Orientation: x4 Motor Activity: Normal gait Speech: Unremarkable Language: Adequate Fund of Knowledge: Adequate Attention and Concentration: Adequate Memory: Unremarkable Mood: Appropriate Affect: Appropriate Thought Process & Associations: Goal directed, Disorganized Thought Content: Bizarre thinking, Thought blocking, Delusional Hallucination Type: None Delusion Type: None, Paranoid Suicidal Ideation: No Suicidal Plan: No Suicidal Intention: No Homicidal Ideation: No Homicidal Plan: No Homicidal Intention: No Insight: Poor Judgment: Poor Assessment & Plan Problem List: (1) Unspecified psychosis ICD Codes: F29 - Unspecified psychosis not due to a substance or known physiological condition Assessment & Plan: On psychiatric evaluation today the patient presents acutely psychotic, with prominent flat affect, bizarre thought processes and behavior,oddly related, very malodorous, very paranoid, with grandiosity or delusions. Patient has reportedly been very agitated and aggressive in his initial presentation in the ER, also with the police. He denies previous psychiatric history, denies psychiatric hospitalizations, denies suicidal attempts, but he is not a reliable source of information. Collateral information would be crucial in order to complete the psychiatric assessment. Patient definitely has an increased risk of danger to self and others due to the level of psychosis. He will be admitted for stabilization and safety. At this moment etiology of psychosis is unclear, but PCP interview psychosis have to be carefully rule out, as well as a primary psychotic illness decompensation. We'll start Haldol 5 g twice a day. Haldol 5 mg IM every 8 hours when necessary aggressive behavior and agitation. QTc interval is 343. Will order PCP levels in urine. Transfer to psychiatry once medically appropriate. Assessment & Plan Estimated LOS: Coy Osorio MD Jun 29, 2017 14:18
--- NOTE | 2017-06-29 14:30 | RADRPT ---
EXAM DATE/TIME: 06/29/2017 13:30 [facility] COMPARISON: No previous studies available for comparison. INDICATIONS : Pain and swelling right hand, injured getting out of car MEDICAL HISTORY : None. SURGICAL HISTORY : None. ENCOUNTER: Initial ACUITY: 1 day PAIN SCORE: 8/10 LOCATION: Right Hand FINDINGS: Three-view examination demonstrates normal alignment and appearance to the osseous structures of the hand. No fracture seen. There is prominent soft tissue swelling about the dorsal aspect of the hand without radiopaque foreign body. CONCLUSION: 1. Prominent dorsal soft tissue swelling. 2. No fracture seen. Afshin Garcia MD on June 29, 2017 at 14:27 Board Certified Radiologist. This report was verified electronically.
--- NOTE | 2017-06-29 14:59 | RADRPT ---
EXAM DATE/TIME: 06/29/2017 13:38 [facility] COMPARISON: No previous studies available for comparison. INDICATIONS : MEDICAL HISTORY : Unable to maintain medical history due to altered mental status. SURGICAL HISTORY : Unable to obtain. ENCOUNTER: Initial ACUITY: 1 day PAIN SCORE: 5/10 LOCATION: Right arm. FINDINGS: There is spontaneous flow documented in the brachial, basilic, cephalic, axillary, and subclavian vei ns. The vessels are compressible and augmentation response is documented. No filling defects are se en. The flow is phasic with respiration. Direction of flow in the jugular vein is caudal. CONCLUSION: Normal examination. Rd Kwok MD on June 29, 2017 at 14:58 Board Certified Radiologist. This report was verified electronically.
[2017-06-29 16:59] LABS: HEMOGLOBIN A1C 5.4 % (4.3-6.0)
== END 2017-06-29 19:40 ==
LOC: NEPE 11:29 → INTOOBSV 15:03 → NEDA 15:03 → EDBD 15:03 → N06A 17:48
PROVIDERS: ADMIT Hospitalist; ATTEND Hospitalist
DX: G92 Toxic encephalopathy (principal); S81.012A Laceration without foreign body, left knee, initial encounter; E87.2 Acidosis; N17.9 Acute kidney failure, unspecified; R73.9 Hyperglycemia, unspecified; R45.4 Irritability and anger; F23 Brief psychotic disorder; R00.0 Tachycardia, unspecified; R94.31 Abnormal electrocardiogram [ECG] [EKG]; F19.10 Other psychoactive substance abuse, uncomplicated; Z78.1 Physical restraint status; X58.XXXA Exposure to other specified factors, initial encounter
CPT/HCPCS: 12002; 70450; 71045; 73130; 73560; 80053; 80307; 82550; 82552; 83036; 83605; 83735; 83992; 84443; 84484; 85025; 90714; 93005; 93971; 96361; 96372; 96374; 96376; 97162; 99285; G0378; J2060; J2250; J7030; G0480

== ENCOUNTER 2017-06-29 20:00 | Inpatient (IN) | payer SELFPAY ==
[~2017-06-29] VITALS: Ht 170.2 cm; Wt 70.0 kg
[2017-06-29 19:50] VITALS: BP 122/78; PULSE 86; RESP 20; TEMP 100.8; O2SAT 99
[2017-06-29] MEDS: HALOPERIDOL 5 MG TAB PO SCH (21:52)
[2017-06-29] MEDS: HALOPERIDOL LACTATE 5 MG/ML AMP IM SCH (21:52)
[2017-06-29] MEDS ORDERED: FLUMAZENIL 0.5 MG/5 ML VIAL IV PUSH PRN (22:00)
[2017-06-29] MEDS ORDERED: LORazepam 2 MG TAB PO PRN (22:00)
[2017-06-29] MEDS ORDERED: LORazepam 2 MG/ML VIAL IM PRN ×5 (22:00)
[2017-06-29] MEDS ORDERED: ACETAMINOPHEN 325 MG TAB PO PRN (22:00)
[2017-06-29] MEDS ORDERED: ALUMINUM/MAGNESIUM/SIMETH 30 ML CUP PO PRN (22:00)
[2017-06-29] MEDS ORDERED: MAGNESIUM HYDROXIDE SUSP 30 ML CUP PO PRN (22:00)
[2017-06-29] MEDS ORDERED: LORazepam 1 MG TAB PO PRN ×2 (22:00)
[2017-06-30 06:03] VITALS: BP 123/77; PULSE 81; RESP 16; TEMP 98; O2SAT 99
[2017-06-30] MEDS: NICOTINE 21 MG/24 HR PATCH T-DERMAL SCH (08:04)
--- NOTE | 2017-06-30 08:52 | HHI.HP ---
Provisional Diagnosis Admission Date Jun 29, 2017 at 20:00 [place] I. 1. Adjustment disorder with mixed disturbance of emotions and conduct 2. Cannabis abuse [place] II. Deferred Certification of Person's Competence To Provide Express and Informed Consent I have personally examined Kai Fay , a person being served at [facility] on, Jun 30, 2017 08:52. Express and informed consent means consent voluntarily given in writing, by a competent person, after sufficient explanation and disclosure of the subject matter involved to enable the person to make a knowing and willful decision without any element of force, fraud, deceit, duress, or other form of constraint or coercion. This person is 18 years of age or older, is not now known to be incompetent to consent to treatment with a guardian advocate, and does not have a health care surrogate or proxy currently making medical treatment decisions. I have found this person to be one of the following: [] Competent to provide express and informed consent, as defined above, for voluntary admission to this facility and is competent to provide express and informed consent for treatment. He/she has the consistent capacity to make well reasoned, willful, and knowing decisions concerning his or her medical or mental health treatment. The person fully and consistently understands the purpose of the admission for examination/placement and is fully capable of personally exercising all rights assured [place] [x] Incompetent to provide express and informed consent to voluntary admission, and this is incompetent to provide express and informed consent to treatment. The person must be transferred to involuntary status and a petition for a guardian advocate filed with the Circuit Court. [] Refusing to provide express and informed consent to voluntary admission but is competent to provide express and informed consent for treatment. The person must be discharged or transferred to involuntary status. Form shall be completed within 24 hours of a person's arrival at the receiving facility and filed in the clinical record of each person: 1. Admitted on a voluntary basis 2. Permitted to provide express and informed consent to his/her own treatment 3. Allowed to transfer from involuntary to voluntary status 4. Prior to permitting a person to consent to his or her own treatment after having been previously found incompetent to consent to treatment. History of Present Illness Capacity: Has Capacity (to consent for medication) Psych Chief Complaint: "I don't know how I came to be here." HPI From Dr. Izaguirre's consult: The patient is a 31 years old descended man, domiciled with his in [facility], employed, without any previous psychiatric history, no previous psychiatric hospitalizations, no previous suicidal attempts, just cannabis use disorder, medical medical history, was hospitalized under the name of [facility] and presents to the ED under BA for evaluation of PCP ingestion. Patient at this time is not a good historian at all and is clearly under the influence of illicit drugs. Per report from police who got involved, allegedly patient took an unknown amount of PCP, was acting erratic and hallucinating stating that he was "God" and became very agressive. [facility] contacted and he had to be restrained and given ketamine with good improvement of symptoms. Patient is currently restrained. Per police he hit his head and left knee on the police car x 3 times. Patient was admitted in the medical floor due to Altered mental status change, brain CT didn't show any acute findings. He was consulted to psychiatry due to psychotic behavior. Chart was reviewed. The patient was wildly discussed with nurse in charge, also with Dr. Lawson. On psychiatric evaluation today the patient is found accompanied bite severe. The patient is distant, poorly cooperative, at the beginning oppositional and irritable. The patient is extremely malodorous, with with flat affect and oddly related. When I asked to the patient the reason for his hospitalization he says "I I don't know". He asked me if he can call me by my first name, telling me that I can call him "Kai the great". With reassurance and redirection the patient was able to say that he doesn't really understand the reason he was brought here, he says that he has been feeling very depressed because people in the street has been "ignoring me". He says that he has been trying to love everybody, but nobody loved him. He says that people are looking at him suspiciously "but haven't done anything, I just want the love". During the evaluation the patient behaves very bizarrely, with prominent flat affect, blocking thought and delayed speech. At some point during the evaluation the patient also becomes very Labile and is start crying for no reason. He says that sometimes he feels like "I don't know why I am, I don't know where the people around me". He denies suicidal and homicidal ideation, he denies visual and auditory hallucinations. The patient denies previous psychiatric history, he denies the use of illegal drugs other than cannabis. As per nursing charge the patient has been reportedly very aggressive, agitated and disorganized. On my exam today, 06/30: Patient seen and examined with nurse. Chart reviewed. Case discussed with nursing staff. On my examination today, the patient presents as extremely malodorous and somewhat disheveled. He tells me that he is not sure how he came to be in the hospital. He says that he was at home and he "started feeling weird. I went out of the apartment and no one was answering my questions." He says that this lack of answering questions was quite distressing for him. He says that he interacted with the police who also would not answer his questions. His affect is somewhat labile and he becomes tearful easily as he is recounting this. He denies any suicidal or homicidal ideation presently, although it is unclear that he is reliable to contract for safety. He denies any audiovisual hallucinations. I can elicit no delusional material. He denies any mood symptoms and says that his sleep is fine. The remainder of the psychiatric ROS is negative. The patient complains of right arm swelling and he does have a left knee lesion with melinda but otherwise has no physical complaints. Past psychiatric history: The patient denies a history of psychiatric diagnosis. He denies a history of inpatient or outpatient psychiatric treatment. He denies a history of previous suicide attempts. He denies a history of violent behavior. Family history: The patient denies any family history of serious mental illness , substance use disorder or suicide. Chemical dependency history: The patient admits to use of cannabis. He does note that he got a new cannabis supplier recently. He denies any other use of substances and in particular denies any use of synthetic drugs. Social history: The patient reports that he lives with his cody Guaman. They are due to be in August. He has no children. He is high school educated. 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 He denies any history. Denies any legal history. Denies any access to guns or firearms. He was raised Protestant. He denies any history of physical, verbal or sexual abuse. With the patient's permission, I endeavored 3 times to obtain collateral from shima Guaman at the number provided by patient [phone] without success. Review of Systems ROS Limitations: Poor Historian Except as stated in HPI: all other systems reviewed are Neg Past Family Social History Coded Allergies: No Allergy Information Available (Unverified , 06/28/17) Past Medical History See electronic medical record Unable to Obtain Active Prescriptions or Reported Meds Current Medications Medications (Trade) Dose Ordered Sig/Rhianna Route Start Time Stop Time Status Last Admin (Ativan) 1 mg Q6H PRN PO 06/29/17 22:00 (Ativan Inj) 1 mg Q6H PRN IM 06/29/17 22:00 (Tylenol) 650 mg Q4H PRN PO 06/29/17 22:00 (Milk Of Magnesia Liq) 30 ml DAILY PRN PO 06/29/17 22:00 (Mag-Al Plus Susp Liq) 30 ml Q6H PRN PO 06/29/17 22:00 (Habitrol 21 Mg Patch.24 Hr) 1 patch DAILY T-DERMAL 06/30/17 09:00 Miscellaneous Information 1 HS T-DERMAL 06/30/17 21:00 (Haldol) 5 mg BID PO 06/29/17 21:52 (Haldol Inj) 5 mg BID IM 06/29/17 21:52 (Ativan) 1 mg Q4H PRN PO 06/29/17 22:00 (Ativan Inj) 1 mg Q4H PRN IM 06/29/17 22:00 (Ativan) 2 mg Q2H PRN PO 06/29/17 22:00 (Ativan Inj) 2 mg Q2H PRN IM 06/29/17 22:00 (Ativan Inj) 2 mg Q1H PRN IM 06/29/17 22:00 (Ativan Inj) 2 mg Q15M PRN IM 06/29/17 22:00 (Romazicon Inj) 0.2 mg Q1M PRN IV PUSH 06/29/17 22:00 Physical Exam Physical examination was completed by the hospitalist on the medical floor. On my examination today, the patient appears to be in no acute physical distress. He does have a*tattoo at the corner of his right eye. He also has a left knee lesion with melinda. His right arm does appear somewhat swollen on my exam. No motor abnormalities noted. Labs and vitals reviewed: Vital Signs Vital Signs Date Time Temp Pulse Resp B/P (MAP) Pulse Ox O2 Delivery O2 Flow Rate FiO2 06/30/17 06:03 98.0 81 16 123/77 (92) 99 Lab Results Item Value Date Time White Blood Count 8.0 TH/MM3 06/28/17 1200 Hemoglobin 16.4 GM/DL 06/28/17 1200 Platelet Count 316 TH/MM3 06/28/17 1200 Sodium Level 139 MEQ/L 06/30/17 0900 Potassium Level 3.5 MEQ/L 06/30/17 0900 Chloride Level 103 MEQ/L 06/30/17 09 Carbon Dioxide Level 30.3 MEQ/L 06/30/17 0900 Blood Urea Nitrogen 5 MG/DL L 06/30/17 0900 Creatinine 0.71 MG/DL 06/30/17 0900 Estimat Glomerular Filtration Rate 130 ML/MIN 06/30/17 0900 Hemoglobin A1c 5.4 % 06/29/17 0531 Aspartate Amino Transf (AST/SGOT) 68 U/L H 06/29/17 0531 Alanine Aminotransferase (ALT/SGPT) 27 U/L 06/29/17 0531 Alkaline Phosphatase 53 U/L 06/29/17 0531 Total Creatine Kinase 283 U/L 06/28/17 1200 Thyroid Stimulating Hormone 3rd Gen 0.703 uIU/ML 06/28/17 1200 Urine Cannabinoids Screen POS H 06/28/17 1205 Ethyl Alcohol Level LESS THAN 3 MG/DL 06/28/17 1200 Mental Status Examination Appearance: Disheveled, Malodorous Consciousness: Alert Orientation: x4 Motor Activity: Other (no motor abnormalities noted) Speech: Unremarkable Language: Adequate Fund of Knowledge: Adequate Attention and Concentration: Adequate Memory: Unremarkable Mood: Anxious, Other (dysphoric) Affect: Labile Thought Process & Associations: Circumstantial Thought Content: Appropriate Hallucination Type: None Delusion Type: None Suicidal Ideation: No (unclear if reliable to contract for safety) Suicidal Plan: No Suicidal Intention: No Homicidal Ideation: No Homicidal Plan: No Homicidal Intention: No Mental Status Exam Remarks Insight and judgment are presently unclear Assessment & Plan Problem List: (1) Adjustment disorder with mixed disturbance of emotions and conduct ICD Codes: F43.25 - Adjustment disorder with mixed disturbance of emotions and conduct (2) Cannabis abuse ICD Codes: F12.10 - Cannabis abuse, uncomplicated Assessment & Plan 31-year-old male with psychiatric history as detailed above transferred from the medical floor after presenting to the ED under BA with AMS. Presently, the patient's mental status appears to be improved versus his mentation on the medical floor. He does have ongoing affective lability and is fairly disheveled and malodorous. I have concern for a self-care deficit in a less restrictive setting, and reassuring collateral cannot presently be obtained. It is possible that his symptoms are substance induced, but we need to observe for a primary mental illness. The patient is declining voluntary psychiatric admission, declining psychotropics. I will plan to admit the patient to the inpatient psychiatric unit for observation. Admit inpatient. Involuntary status. I've completed first opinion. Consult for second opinion. Patient retains capacity to consent for medication. Discontinue Haldol as patient is declining psychotropics. Ativan per CIWA. Seizure prec. Consult to the hospitalist. Vitals every shift. Counselors to see and try to obtain collateral. Disposition planning. Estimated length of stay: 3-5 days. Discharge Planning Pending outcome of observation Request HC Surrog/Guard Advoc?: No Aidan Ponce MD Jun 30, 2017 08:52
[2017-06-30] MEDS: HALOPERIDOL 5 MG TAB PO SCH (09:00)
[2017-06-30] MEDS: HALOPERIDOL LACTATE 5 MG/ML AMP IM SCH (09:00)
[2017-06-30 10:03] LABS: BICARBONATE 30.3 MEQ/L (21.0-32.0); BLOOD UREA NITROGEN 5 MG/DL (7-18); CALCIUM 9.1 MG/DL (8.5-10.1); CHLORIDE 103 MEQ/L (98-107); CREATININE 0.71 MG/DL (0.60-1.30); GLOMERULAR FILTRATION RATE 130 ML/MIN (>89); GLUCOSE,RANDOM 102 MG/DL (74-106); SODIUM (NA) 139 MEQ/L (136-145)
[2017-06-30 10:04] LABS: CHOLESTEROL 142 MG/DL (120-200); TRIGLYCERIDES 50 MG/DL (42-150)
[2017-06-30 10:11] LABS: CHOLESTEROL/ HDL RATIO 3.12 RATIO; HDL CHOLESTEROL 45.4 MG/DL (40.0-60.0); LDL CHOLESTEROL 87 MG/DL (0-99)
--- NOTE | 2017-06-30 14:40 | PD.CONS ---
[facility] Requested By Dr. Nicholson Reason for Consult Lactic acid acidosis, toxic encephalopathy, acute renal failure Primary Care Physician Unknown Diagnoses: (1) Swelling of arm (2) Substance abuse (3) Adjustment disorder with mixed disturbance of emotions and conduct History of Present Illness The patient is a 31-year-old male who is seen in inpatient psychiatry. He was discharged from the medical service yesterday. He was initially admitted for altered mental status secondary to drug overdose. He had lactic acidosis upon presentation, which resolved. Acute renal failure also resolved with IV fluids. The patient's complaint at this time is right upper extremity swelling. Ultrasound was negative yesterday for DVT. Right hand x-ray showed no evidence of fracture. He denies chest pain or dyspnea. Review of Systems Constitutional: DENIES: Fever, Chills, Night Sweats Eyes: DENIES: Blurred vision, Vision loss Ears, nose, mouth, throat: DENIES: Hearing loss Respiratory: DENIES: Cough, Wheezing, Sputum production, Shortness of breath Cardiovascular: DENIES: Chest pain, Palpitations, Dyspnea on Exertion, Lower Extremity Edema Gastrointestinal: DENIES: Abdominal pain, Constipation, Diarrhea, Nausea, Vomiting Genitourinary: DENIES: Urinary frequency, Urinary incontinence, Urgency, Hematuria, Dysuria, Nocturia Musculoskeletal: DENIES: Joint pain, Muscle aches Integumentary: DENIES: Pruritus, Rash Hematologic/lymphatic: DENIES: Bruising Neurologic: DENIES: Headache Past Family Social History Allergies: Coded Allergies: No Allergy Information Available (Unverified , 06/28/17) Past Medical History Polysubstance abuse Past Surgical History Denies Reported Medications None Family History The patient denies significant family medical history. Social History Patient has a history cannabis use. Urine drug screen was positive for cannabinoids. Physical Exam Vital Signs Vital Signs Date Time Temp Pulse Resp B/P (MAP) Pulse Ox O2 Delivery O2 Flow Rate FiO2 06/30/17 06:03 98.0 81 16 123/77 (92) 99 06/29/17 19:50 100.8 86 20 122/78 (93) 99 Physical Exam GENERAL: This is a well-nourished, well-developed patient, in no apparent distress. Ambulating in the hallway. SKIN: Laceration with melinda overlying the left knee. Cool and dry. HEAD: Atraumatic. Normocephalic. No temporal or scalp tenderness. EYES: Pupils equal round and reactive. Extraocular motions intact. No scleral icterus. No injection or drainage. ENT: Nose without bleeding, purulent drainage or septal hematoma. Throat without erythema, tonsillar hypertrophy or exudate. Uvula midline. Airway patent. NECK: Trachea midline. No JVD or lymphadenopathy. Supple, nontender, no meningeal signs. CARDIOVASCULAR: Regular rate and rhythm without murmurs, gallops, or rubs. RESPIRATORY: Clear to auscultation. Breath sounds equal bilaterally. No wheezes , rales, or rhonchi. GASTROINTESTINAL: Abdomen soft, non-tender, nondistended. No hepato-splenomegaly , or palpable masses. No guarding. MUSCULOSKELETAL: Right upper extremity swollen. NEUROLOGICAL: Awake and alert. Cranial nerves II through XII intact. Motor and sensory grossly within normal limits. Five out of 5 muscle strength in all muscle groups. Normal speech. Laboratory Laboratory Tests Test 06/30/17 09:00 Blood Urea Nitrogen 5 Creatinine 0.71 Random Glucose 102 Calcium Level 9.1 Sodium Level 139 Potassium Level 3.5 Chloride Level 103 Carbon Dioxide Level 30.3 Anion Gap 6 Estimat Glomerular Filtration Rate 130 Triglycerides Level 50 Cholesterol Level 142 LDL Cholesterol 87 HDL Cholesterol 45.4 Cholesterol/HDL Ratio 3.12 Result Diagram: 06/30/17 0900 Assessment and Plan Assessment and Plan 1. Adjustment disorder with mixed disturbance of emotions and conduct: Management per psychiatry. Patient was admitted under [place] act. 2. Cannabis abuse: The patient has been counseled. 3. Right arm swelling: Ultrasound and x-ray are negative. Keep right arm elevated. [facility] will sign off. Reconsult if necessary. Tyree Kee MD Jun 30, 2017 14:40
[2017-06-30 14:49] LABS: HEMOGLOBIN A1C 5.4 % (4.3-6.0)
[2017-06-30 18:08] VITALS: BP 123/64; PULSE 76; RESP 18; TEMP 98.7; O2SAT 98
[2017-06-30] MEDS: REMOVE OLD NICOTINE PATCH T-DERMAL SCH (20:35)
[2017-07-01 06:06] VITALS: BP 125/65; PULSE 70; RESP 16; TEMP 98; O2SAT 98
[2017-07-01] MEDS: NICOTINE 21 MG/24 HR PATCH T-DERMAL SCH (07:56)
--- NOTE | 2017-07-01 14:10 | PD.PSY.CON ---
Provisional Diagnosis Admission Date Jun 29, 2017 at 20:00 [place] I. Substance induced mood disorder Adjustment disorder with mixed disturbance of emotions and conduct Cannabis abuse [place] II. Deferred History of Present Illness Service Psychiatry Consult Requested By Psychiatry Reason for Consult 2nd opinion Primary Care Physician Unknown HPI Pt seeen and discussed with staff. Chart reviewed. Pt is a 31YO male who was admitted to [facility] under a BA secondary to erratic behavior after drug ingestion. Per records pt was hallucinating and became very aggressive. He was admitted to medical floor due to AMS. After medical clearance he was transferred psychiatry due to continued bizarre behavior and poor self self care. Yesterday, staff appraiser report that pt was very withdrawn malodorous with poor hygiene. He refused voluntary admission and was held under a BA due to concerns that pt had not cleared from substance induced mood changes. Today, pt has showered. He reports that he is starting to feel better and that he smoked a cannabis joint that was laced with unknown drug. He reports that he is under a lot of stress due to stressful work situation and feels that may have contributed breakdown. He reports that he is perfectly fine but appears quite anxious and somewhat dysphoric. He is adamant that he will not take any psychiatric medications . Past psychiatric history: The patient denies a history of psychiatric diagnosis. He denies a history of inpatient or outpatient psychiatric treatment. He denies a history of previous suicide attempts. He denies a history of violent behavior. Family history: The patient denies any family history of serious mental illness , substance use disorder or suicide. Chemical dependency history: The patient admits to use of cannabis. He does note that he got a new cannabis supplier recently. He denies any other use of substances and in particular denies any use of synthetic drugs. Social history: The patient reports that he lives with his cody Guaman. They are due to be in August. He has no children. He is high school educated. 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 He denies any history. Denies any legal history. Denies any access to guns or firearms. He was raised Denominational. He denies any history of physical, verbal or sexual abuse. Review of Systems Psychiatric: COMPLAINS OF: Anxiety, Mood changes Past Family Social History Coded Allergies: No Known Allergies (Verified Allergy, Unknown, 07/01/17) Unable to Obtain Active Prescriptions or Reported Meds Current Medications Medications (Trade) Dose Ordered Sig/Rhianna Route Start Time Stop Time Status Last Admin (Tylenol) 650 mg Q4H PRN PO 06/29/17 22:00 (Milk Of Magnesia Liq) 30 ml DAILY PRN PO 06/29/17 22:00 (Mag-Al Plus Susp Liq) 30 ml Q6H PRN PO 06/29/17 22:00 (Habitrol 21 Mg Patch.24 Hr) 1 patch DAILY T-DERMAL 06/30/17 09:00 Miscellaneous Information 1 HS T-DERMAL 06/30/17 21:00 (Ativan) 1 mg Q4H PRN PO 06/29/17 22:00 (Ativan Inj) 1 mg Q4H PRN IM 06/29/17 22:00 (Ativan) 2 mg Q2H PRN PO 06/29/17 22:00 (Ativan Inj) 2 mg Q2H PRN IM 06/29/17 22:00 (Ativan Inj) 2 mg Q1H PRN IM 06/29/17 22:00 (Ativan Inj) 2 mg Q15M PRN IM 06/29/17 22:00 (Romazicon Inj) 0.2 mg Q1M PRN IV PUSH 06/29/17 22:00 Physical Exam Vital Signs Vital Signs Date Time Temp Pulse Resp B/P (MAP) Pulse Ox O2 Delivery O2 Flow Rate FiO2 07/01/17 06:06 98.0 70 16 125/65 (85) 98 Mental Status Examination Appearance: Disheveled, Malodorous Consciousness: Alert Orientation: x4 Motor Activity: Other (no motor abnormalities noted) Speech: Unremarkable Language: Adequate Fund of Knowledge: Adequate Attention and Concentration: Adequate Memory: Unremarkable Mood: Anxious, Other (dysphoric) Affect: Sad, Anxious Thought Process & Associations: Circumstantial Thought Content: Appropriate Hallucination Type: None Delusion Type: None Suicidal Ideation: No (unclear if reliable to contract for safety) Suicidal Plan: No Suicidal Intention: No Homicidal Ideation: No Homicidal Plan: No Homicidal Intention: No Assessment & Plan Problem List: (1) Substance induced mood disorder ICD Codes: F19.94 - Other psychoactive substance use, unspecified with psychoactive substance-induced mood disorder (2) Adjustment disorder with mixed disturbance of emotions and conduct ICD Codes: F43.25 - Adjustment disorder with mixed disturbance of emotions and conduct (3) Cannabis abuse ICD Codes: F12.10 - Cannabis abuse, uncomplicated Assessment & Plan I agree that pt warrants further monitoring for safety at this time. 2nd opinion paperwork completedEstimated LOS: days Request HC Surrog/Guard Advoc?: Norma Boudreaux MD Jul 01, 2017 14:10
[2017-07-01 17:59] VITALS: BP 117/75; PULSE 67; RESP 17; TEMP 98.9; O2SAT 97
[2017-07-01] MEDS: REMOVE OLD NICOTINE PATCH T-DERMAL SCH (21:00)
[2017-07-02 06:10] VITALS: BP 133/80; PULSE 61; RESP 18; TEMP 97.9; O2SAT 97
[2017-07-02] MEDS: NICOTINE 21 MG/24 HR PATCH T-DERMAL SCH (09:00)
--- NOTE | 2017-07-02 12:05 | HHI.PYPN ---
Subjective Chief Complaint: "I don't know how I came to be here." Remarks Pt seen and discussed with staff. He has been compliant with medications and has been participating in groups. No aggression or agitation. He states that this admission has been positive, because he has not smoked cigarettes and he wants to quit. He states that he realizes that it is time to "grow up" and stop using drugs. Psychoeducation about detriment of continued substance abuse was provided to pt and he was counseled to avoid substance abuse. No SI/HI Mental Status Examination Appearance: Disheveled, Malodorous Consciousness: Alert Orientation: x4 Motor Activity: Other (no motor abnormalities noted) Speech: Unremarkable Language: Adequate Fund of Knowledge: Adequate Attention and Concentration: Adequate Memory: Unremarkable Mood: Anxious, Other (dysphoric) Affect: Sad, Anxious Thought Process & Associations: Circumstantial Thought Content: Appropriate Hallucination Type: None Delusion Type: None Suicidal Ideation: No (unclear if reliable to contract for safety) Suicidal Plan: No Suicidal Intention: No Homicidal Ideation: No Homicidal Plan: No Homicidal Intention: No Insight: Fair Judgment: Adequate Results Vitals/IOs Vital Signs Date Time Temp Pulse Resp B/P (MAP) Pulse Ox O2 Delivery O2 Flow Rate FiO2 07/02/17 06:10 97.9 61 18 133/80 (97) 97 Assessment & Plan Problem List: (1) Substance induced mood disorder ICD Codes: F19.94 - Other psychoactive substance use, unspecified with psychoactive substance-induced mood disorder (2) Adjustment disorder with mixed disturbance of emotions and conduct ICD Codes: F43.25 - Adjustment disorder with mixed disturbance of emotions and conduct (3) Cannabis abuse ICD Codes: F12.10 - Cannabis abuse, uncomplicated Assessment & Plan Pt improving. Continue current tx plan and discharge planning. Estimated LOS: days Justification for Cont. Inpt. monitoring for safety Request HC Surrog/Guard Advoc?: Norma Boudreaux MD Jul 02, 2017 12:05
[2017-07-02] MEDS: REMOVE OLD NICOTINE PATCH T-DERMAL SCH (21:00)
[2017-07-03] MEDS: NICOTINE 21 MG/24 HR PATCH T-DERMAL SCH (08:31)
--- NOTE | 2017-07-03 12:11 | HHI.DS ---
Psychiatry Discharge Summary Inpatient Psychiatric care?: Yes Advance Directive: No Reason Not Provided: Due to Patient Condition Mental Health AdvanceDirective: No Health Care Proxy: No Admission Admission Date Jun 29, 2017 at 20:00 Admission Diagnosis: (1) Adjustment disorder with mixed disturbance of emotions and conduct ICD Code: F43.25 - Adjustment disorder with mixed disturbance of emotions and conduct (2) Cannabis abuse ICD Code: F12.10 - Cannabis abuse, uncomplicated Brief History Pt seeen and discussed with staff. Chart reviewed. Pt is a 31YO male who [place] [facility] secondary to erratic behavior after drug ingestion. Per records pt was hallucinating and became very aggressive. He was admitted to medical floor due to AMS. After medical clearance he was transferred psychiatry due to continued bizarre behavior and poor self self care. Yesterday, staff development coordinator rn report that pt was very withdrawn malodorous with poor hygiene. He refused voluntary admission and was held under a BA due to concerns that pt had not cleared from substance induced mood changes. Today, pt has showered. He reports that he is starting to feel better and that he smoked a cannabis joint that was laced with unknown drug. He reports that he is under a lot of stress due to stressful work situation and feels that may have contributed breakdown. He reports that he is perfectly fine but appears quite anxious and somewhat dysphoric. He is adamant that he will not take any psychiatric medications . Past psychiatric history: The patient denies a history of psychiatric diagnosis. He denies a history of inpatient or outpatient psychiatric treatment. He denies a history of previous suicide attempts. He denies a history of violent behavior. Family history: The patient denies any family history of serious mental illness , substance use disorder or suicide. Chemical dependency history: The patient admits to use of cannabis. He does note that he got a new cannabis supplier recently. He denies any other use of substances and in particular denies any use of synthetic drugs. Social history: The patient reports that he lives with his cody Guaman. They are due to be in August. He has no children. He is high school educated. 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 He denies any history. Denies any legal history. Denies any access to guns or firearms. He was raised Jehov[employer]. He denies any history of physical, verbal or sexual abuse. Tobacco Use In Past 30 Days: Refused To Answer Alcohol Use: Monthly or Less Hospital Course Patient was admitted to a locked, inpatient psychiatric unit. A general medical consultation was obtained. Appropriate precautions were in place throughout patient's hospital stay. Patient was seen and examined on the unit by psychiatry and also visited by counselor. Patient declined any psychotropic medications. There was no evidence of any suicidality or homicidality on the inpatient unit. The patient remained in behavioral control. He was uneventfully transitioned from the higher acuity unit to the lower acuity unit and tolerated the milieu of the lower acuity unit well. On the day of discharge : Patient seen and examined with nurse. Chart reviewed. Case discussed with nursing staff. No behavioral issues noted overnight. Case discussed with counselor. Counselor has obtain collateral information from the patient's cody . Per her counselor report, cody has no safety concerns about patient being discharged home today and is comfortable with his release from the hospital today. On my examination today, the patient is requesting discharge from the inpatient psychiatric unit today. He denies any suicidal or homicidal ideation , intent or plan on direct questioning and contracts for safety. I can elicit no depressive or hypomanic/manic symptoms, and the patient gives his mood as "great." He is future oriented. He denies any audiovisual hallucinations. I can elicit no delusional beliefs. There is no evidence of any impairment in reality construction at this time. We discussed the patient's substance use, and the patient verbalizes a strong desire to remain abstinent from substances. He says that he feels that he needs to "grow the hell up" and cast off his substance use. He declines any psychotropic medications. He has no acute physical complaints. Suicide and violence risk assessment on the day of discharge both suggest lower imminent risk, and the patient's level of function is adequate for outpatient care. The patient no longer meets criteria for involuntary psychiatric hospitalization and is requesting discharge from the inpatient psychiatric unit today. I will discharge the patient home today with psychiatric follow-up as arranged by counselor. Patient is also to follow-up with primary care. I have counseled the patient to abstain from substances of abuse and recommended chemical dependency evaluation and treatment on an outpatient basis. I have counseled the patient regarding warning signs for need to return to the psychiatric emergency room is part of the general safety plan. I have written no prescriptions on discharge. Results Blood Pressure 133 / 80 Vital Signs Date Time Temp Pulse Resp B/P (MAP) Pulse Ox O2 Delivery O2 Flow Rate FiO2 07/02/17 06:10 97.9 61 18 133/80 (97) 97 Laboratory Results Test 06/30/17 09:00 Cholesterol Level 142 MG/DL (120-200) HDL Cholesterol 45.4 MG/DL (40.0-60.0) Hemoglobin A1c 5.4 % (4.3-6.0) LDL Cholesterol 87 MG/DL (0-99) Triglycerides Level 50 MG/DL (42-150) Summary of Procedures None done Imaging None done Pending results at discharge: No Medications # of Antipsychotic meds at D/C: 0 Approp Antipsych med options 1 - Minimum of three failed multiple trials of monotherapy. 2 - Documented plan to taper to monotherapy due to previous use of multiple meds OR cross-taper in progress at D/C. 3 - Documentation of augmentation of Clozapine. 4 - Justification other than those listed in allowable values 1-3, document here : Discharge Discharge Date: Jul 03, 2017 Discharge Diagnosis: (1) Adjustment disorder with mixed disturbance of emotions and conduct Diagnosis: Principal (resolved. Rule out drug-induced mood disorder, now resolved) ICD Code: F43.25 - Adjustment disorder with mixed disturbance of emotions and conduct (2) Cannabis abuse Diagnosis: Secondary (counseled to quit) ICD Code: F12.10 - Cannabis abuse, uncomplicated Pt Condition on Discharge: Stable Discharge Disposition: Discharge Home Discharge Instructions Diet Instructions: As Tolerated, No Restrictions Activities you can perform: Weight Bearing as Jerrica Scheduled Appointment: Shalom Rodriguez Appointment Date: Jul 04, 2017 Appointment Time: 730am Medication Profile: Unable to Obtain Active Prescriptions or Reported Meds Discharge Time <= 30 minutes Mental Status Examination Appearance: Appropriate Consciousness: Alert Orientation: x4 Motor Activity: Normal gait, Other (no abnormal motor movements noted) Speech: Unremarkable Language: Adequate Fund of Knowledge: Adequate Attention and Concentration: Adequate Memory: Unremarkable Mood: Appropriate, Other ("great") Affect: Appropriate, Euthymic Thought Process & Associations: Intact, Logical, Goal directed, Linear Thought Content: Appropriate Hallucination Type: None Delusion Type: None Suicidal Ideation: No Suicidal Plan: No Suicidal Intention: No Homicidal Ideation: No Homicidal Plan: No Homicidal Intention: No Insight: Adequate Judgment: Adequate Discharge/Advance Care Plan Health Problems: (1) Substance induced mood disorder (2) Adjustment disorder with mixed disturbance of emotions and conduct (3) Cannabis abuse Goals to promote your health * To prevent worsening of your condition and complications * To maintain your health at the optimal level Directions to meet your goals Take your medications as prescribed Follow your dietary instruction Follow activity as directed Keep your appointments as scheduled Take your immunizations and boosters as scheduled If your symptoms worsen call your PCP, if no PCP go to Urgent Care Center or Emergency Room For 28/11 questions related to your inpatient stay or results of tests pending at discharge, please contact Dr. Aidan Ponce at Smoking is Dangerous to Your Health. Avoid second hand smoking Aidan Ponce MD Jul 03, 2017 12:11
== END 2017-07-03 13:30 | disposition home or self-care (01) | DRG 882 ==
LOC: H270 20:00 → H260 07-02 15:03
PROVIDERS: ADMIT Psychiatry & Neurology Psychiatry; ATTEND Psychiatry & Neurology Psychiatry
DX: F43.25 Adjustment disorder with mixed disturbance of emotions and conduct (principal); Z78.1 Physical restraint status; F12.10 Cannabis abuse, uncomplicated; F19.14 Other psychoactive substance abuse with psychoactive substance-induced mood disorder; M79.89 Other specified soft tissue disorders
CPT/HCPCS: 80048; 80061; 83036